=== PATIENT | male | born 1955 | race Caucasian/White ===

== ENCOUNTER → 2018-08-06 | Outpatient (CLI) | payer MEDICARE, BC | LOC: M RAD 10:37 | DX: Z12.2 Encounter for screening for malignant neoplasm of respiratory organs (principal); F17.210 Nicotine dependence, cigarettes, uncomplicated; I25.10 Atherosclerotic heart disease of native coronary artery without angina pectoris | CPT/HCPCS: G0297 ==

== ENCOUNTER → 2019-08-07 | Outpatient (CLI) | payer MEDICARE, BC ==
--- NOTE | 2019-08-07 13:21 | REP ---
CT CHEST WITHOUT CONTRAST: LOW-DOSE CANCER SCREENING STUDY. HISTORY: Nicotine dependence. Comparison chest CT studies are from August 06, 2018 and May 19, 2015. CT FINDINGS: There are multiple stable subcentimeter noncalcified pulmonary nodules scattered bilaterally. All of these are unchanged from the May 19, [address] study[address] The largest is in the posterior lung sulcus measuring 4 mm in greatest diameter. No new pulmonary nodule is appreciated. No endobronchial disease is seen. There is some vascular calcification. Study is otherwise unremarkable. IMPRESSION: Stable L-RADS category 2, benign appearance. Repeat screening study recommended in 1 year. Electronically Signed by Franki Hui MD 08/07/2019 02:12 P
== END ==
LOC: M RAD 10:03
PROVIDERS: ATTEND Nurse Practitioner Adult Health
DX: F17.218 Nicotine dependence, cigarettes, with other nicotine-induced disorders (principal); R91.8 Other nonspecific abnormal finding of lung field

== ENCOUNTER → 2021-10-30 | Outpatient (CLI) | payer MEDICARE, BC | LOC: M RAD 09:54 | PROVIDERS: ATTEND Internal Medicine Pulmonary Disease | DX: Z12.2 Encounter for screening for malignant neoplasm of respiratory organs (principal); F17.218 Nicotine dependence, cigarettes, with other nicotine-induced disorders; R91.8 Other nonspecific abnormal finding of lung field ==

== ENCOUNTER → 2022-11-05 | Outpatient (CLI) | payer MEDICARE, BC | LOC: M RAD 09:32 | PROVIDERS: ATTEND Internal Medicine Pulmonary Disease | DX: Z12.2 Encounter for screening for malignant neoplasm of respiratory organs (principal); F17.218 Nicotine dependence, cigarettes, with other nicotine-induced disorders; R91.8 Other nonspecific abnormal finding of lung field ==

== ENCOUNTER → 2023-11-27 | Outpatient (CLI) | payer MEDICARE, BC | LOC: M RAD 12:57 | PROVIDERS: ATTEND Internal Medicine Pulmonary Disease | DX: Z12.2 Encounter for screening for malignant neoplasm of respiratory organs (principal); F17.218 Nicotine dependence, cigarettes, with other nicotine-induced disorders; R91.8 Other nonspecific abnormal finding of lung field; I25.10 Atherosclerotic heart disease of native coronary artery without angina pectoris ==

== ENCOUNTER → 2025-01-11 | Outpatient (CLI) | payer MEDICARE, BC | LOC: M RAD 09:39 | PROVIDERS: ATTEND Internal Medicine Pulmonary Disease | DX: F17.218 Nicotine dependence, cigarettes, with other nicotine-induced disorders (principal) ==